=== PATIENT | male | born 1960 | race Caucasian/White ===

== ENCOUNTER 2023-06-05 16:29 | Emergency (ER) | payer BC, SELFPAY ==
[2023-06-05 16:41] VITALS: BP 176/80; PULSE 92; RESP 18; TEMP 36.8; O2SAT 99; BMI 24.4
--- NOTE | 2023-06-05 16:50 | ED_ITS ---
HPI - Abdominal Pain General Date Seen: 06/05/23 Chief Complaint: Abdominal Pain Stated Complaint: spasms, possible kidney stone Time Seen by Provider: 06/05/23 16:49 History of Present Illness HPI narrative: Pleasant 62-year-old gentleman with a history of hypertension, otherwise healthy presenting to the ER today with left flank and left lower quadrant abdominal pain. He notes that he had an episode of left flank pain the cap and a couple of days ago but got better with heat and hot shower and supportive care. He began to experience another episode of pain this morning around 7:00 a.m. located in his left flank and this time also radiating to his left lower quadrant. The pain since this morning has been much more persistent and much more severe. It is associated with nausea and vomiting. No fever chills. Bowel movements have been normal today. Urination has been normal. No dysuria, urgency, hematuria, frequency. No known injury. No rash. No swelling or pain in his groin. He took 1 of his 's pain killers which was partially and temporarily effective around noon today. Since then he has been experiencing severe pain again. Related Data Home Medications Medication Instructions Recorded Confirmed allopurinol 100 mg tablet 100 mg PO DAILY 06/05/23 06/05/23 Allergies Allergy/AdvReac Type Severity Reaction Status Date / Time No Known Drug Allergies Allergy Verified 06/05/23 16:40 [facility] Social History Smoking Status: Never smoker How often do you have a drink containing alcohol: never How often do you have six or more drinks on one occasion: Never AUDIT-C Alcohol total score: 0 Non-prescribed substance use: denies use Exam Narrative: Exam Narrative: Constitutional: Appears well-developed and well-nourished. Alert. Conversant. Non toxic. HENT: Head: Atraumatic. Nose: Nose normal. Mouth/Throat: Oral mucosa is clear and moist. no trismus. Pharynx normal. Tonsils symmetric. No tonsillar enlargement, erythema, or exudate. Eyes: Conjunctivae normal. EOM normal. Pupils equal, round, and reactive to light. No scleral icterus. Neck: Normal range of motion. Neck supple. No tracheal deviation present. Cardiovascular: Normal rate, regular rhythm. No gallop. No friction rub. No murmur heard. Symmetric radial artery pulses Pulmonary/Chest: Effort normal. No stridor. No respiratory distress. No wheezes. No rales. No rhonchi . No tenderness. Abdominal: Soft. Bowel sounds normal. No distension. No mass. Left CVA and left lower quadrant tenderness. No rebound. No guarding. : Normal circumcised penis. Normal testicles and scrotum. No inguinal masses or hernias. Musculoskeletal: RUE: Normal range of motion. No tenderness. No deformity LUE: Normal range of motion. No tenderness. No deformity RLE: Normal range of motion. No edema. No tenderness. No deformity LLE: Normal range of motion. No edema. No tenderness. No deformity Neurological: Alert and oriented to person, place, and time. Normal strength. CN II-VII intact. No sensory deficit. GCS eye subscore is 4. GCS verbal subscore is 5. GCS motor subscore is 6. Normal coordination Skin: Skin is warm and dry. No rash noted. No pallor. Normal capillary refill. Psychiatric: Normal mood. Normal affect. Const: Vital Signs, click to edit/add: Vital Signs - 24 hr 06/05/23 16:41 06/05/23 18:37 Temperature 98.3 F Pulse Rate [Pulse Oximeter] 92 97 Respiratory Rate 18 18 [facility] 176/80 H 172/94 H Pulse Oximetry 99 96 Oxygen Delivery Me thod Room Air Room Air Course Course ED Course: Recheck-pain improved after Toradol and Dilaudid. Resting more comfortably. Blood pressure still elevated 170/90. Cannot provide urinalysis yet. Reevaluation(s) Reevaluation #1: Recheck-creatinine abnormal at 2.1. Discussed with patient and his family. No old creatinine is available. Patient will try to log into his my chart from [facility] to find out recent lab values. Reevaluation #2: Recheck-patient unable to get into his my chart despite extensive efforts. went home to get their computer and still unable to log in. Still unable to provide UA. White count elevated 20 but not febrile. We were able to contact the [facility] transfer center. They confirmed that he had a normal creatinine of 1.06 in March. This would suggest an acute kidney injury today with creatinine up to 2.1. Vital Signs Vital signs: Initial Vital Signs Temperature 98.3 F 06/05/23 16:41 Temperature Source Temporal Artery Scan 06/05/23 16:41 Pulse Rate 92 06/05/23 16:41 Respiratory Rate 18 06/05/23 16:41 Blood Pressure 176/80 H 06/05/23 16:41 Blood Pressure Mean 112 H 06/05/23 16:41 Pulse Oximetry 99 06/05/23 16:41 Oxygen Delivery Method Room Air 06/05/23 16:41 Vital Signs Temperature 98.3 F 06/05/23 16:41 Pulse Rate 92 06/05/23 16:41 Respiratory Rate 18 06/05/23 16:41 Blood Pressure 176/80 H 06/05/23 16:41 Pulse Oximetry 99 06/05/23 16:41 Oxygen Delivery Method Room Air 06/05/23 16:41 Temperature 98.3 F 06/05/23 16:41 Pulse Rate 97 06/05/23 18:37 Respiratory Rate 18 06/05/23 18:37 Blood Pressure 172/94 H 06/05/23 18:37 Pulse Oximetry 96 06/05/23 18:37 Oxygen Delivery Method Room Air 06/05/23 18:37 Medications Administered Medications: Generic Name Dose Route Start Last Admin Trade Name Freq PRN Reason Stop Dose Admin Hydromorphone HCl 0.5 mg 06/05/23 19:30 06/05/23 19:34 Hydromorphone 0.5 Mg/0.5 Ml Inj IVP 0.5 mg Q1H PRN Administration Pain Discontinued Medications Generic Name Dose Route Start Last Admin Trade Name Freq PRN Reason Stop Dose Admin Hydromorphone HCl 0.5 mg 06/05/23 17:00 06/05/23 17:09 Hydromorphone 0.5 Mg/0.5 Ml Inj IVP 06/05/23 17:01 0.5 mg ONCE ONE Administration Sodium Chloride 1,000 mls @ 1,000 mls/hr 06/05/23 18:35 06/05/23 18:35 0.9 % Sodium Chloride 1000 Ml IV 06/05/23 19:34 1,000 mls/hr .Q1H KRISTEN Administration Ketorolac Tromethamine 15 mg 06/05/23 17:00 06/05/23 17:08 Ketorolac 15 Mg/Ml Inj IVP 06/05/23 17:01 15 mg ONCE ONE Administration Ondansetron HCl 4 mg 06/05/23 17:00 06/05/23 17:07 Ondansetron 2 Mg/Ml Inj IVP 06/05/23 17:01 4 mg ONCE ONE Administration MDM - Abdominal Pain MDM Narrative Medical decision making narrative: This patient presents with left lower quadrant and left flank pain. Differential Diagnosis considered includes: Ureterolithiasis, UTI, pyelonephritis, AAA, colitis, diverticulitis, volvulus, appendicitis, cholecystitis, among others. At this point, the evaluation indicates that ureterolithiasis is the cause of the patient's symptoms. Labs do show an acute kidney injury with a creatinine of 2.1, from baseline of 1.06. Also CT scan shows atrophic right kidney an obstructive stone obstructing his left kidney. This is potentially kidney stone obstructing his solitary good kidney. CT scan confirms a 5 mm distal left ureteral stone with associated marked hydronephrosis, left perinephric stranding, and signs of rupture of the proximal collecting system. He has an elevated white count of 20, but no fever. Urinalysis pending at the time of this dictation. Discussed with urology. They want us to hold off on antibiotics until they can obtain intraoperative urine samples for culture, since he is not showing hypotension or sepsis physiology. He will be transferred by EMS to the ED at [facility] in [place]. He is NPO. Pain controlled after Dilaudid. Lab Data Labs: Lab Results 06/05/23 06/05/23 Range/Units 16:50 19:30 WBC 20.19 H (4.50-11.00) K/uL RBC 4.95 (4.30-5.90) m/uL Hgb 13.8 (13.5-17.5) gm/dL Hct 41.8 (37.0-53.0) % MCV 84 (80-100) fL MCH 28 (26-34) pg MCHC 33 (32-36) gm/dL RDW Coeff of Selvin 12.8 (11.5-15.5) % Plt Count 331 (140-440) K/uL Neut % (Auto) 91.0 H (42.0-72.0) % Lymph % (Auto) 5.2 L (20-44) % Dodge % (Auto) 3.6 (0.0-11.0) % Eos % (Auto) 0.0 (0.0-7.0) % Baso % (Auto) 0.0 (0.0-3.0) % Neut # (Auto) 18.40 H (1.7-7.0) K/uL Lymph # (Auto) 1.00 (0.90-2.90) K/uL Dodge # (Auto) 0.70 (0.00-0.90) K/UL Eos # (Auto) 0.00 (0.00-0.50) K/uL Baso # (Auto) 0.00 (0.00-0.30) K/uL Abs Immat Gran (auto) 0.00 (0.00-0.30) K/uL Imm/Tot Granulo (auto) 0.2 % Sodium 140 (135-149) mmol/L Potassium 4.4 (3.6-5.1) mmol/L Chloride 107 (96-114) mmol/L Carbon Dioxide 21 (20-32) mmol/L Anion Gap 12 (7-15) mEq/L BUN 20 (7-30) mg/dL Creatinine 2.1 H (0.5-1.5) mg/dL Estimated Creat Clear 39.52 Estimated GFR 35 ml/min Glucose 150 H (60-115) mg/dL Calcium 9.7 (8.4-10.6) mg/dL Urine Color Yellow (Yellow) Urine Appearance Clear (Clear) Urine pH 7.0 (5.0-8.5) Ur Specific [place] 1.020 (1.000-1.030) Urine Protein Negative (Negative) Urine Glucose (UA) Trace A (Negative) Urine Ketones Negative (Negative) Urine Blood 1+ A (Negative) Urine Nitrite Negative (Negative) Urine Bilirubin Negative (Negative) Urine Urobilinogen 0.2 (0.2-1.0) Ur Leukocyte Esterase Negative (Negative) Imaging Data CT scan - abdomen: Attestation: I have reviewed the pertinent imaging results. Radiologist's impression: IMPRESSION: 1. Moderate left hydronephrosis and hydroureter with 5 millimeter stone just distal to the UVJ. Additional nonobstructing left renal calculi. There is a large amount of perinephric stranding and fluid on the left with fluid tracking along the left pericolic gutter into the pelvis. This probably is related to forniceal rupture. Discharge Plan Discharge Clinical Impression: Acute kidney injury, Kidney stone Patient Disposition: [facility] Prescriptions: No Action allopurinol 100 mg tablet 100 mg PO DAILY Stand Alone Forms: [id number] Instructions
--- NOTE | 2023-06-05 16:51 | CT_ITS ---
Patient: PILO LOPEZ Facility:?[facility] Patient ID:?[id number] Site Patient ID:?[id number]. Site :?[id number] Study:?CT-Abdomen/Pelvis STONE STUDY-06/05/2023 5:22:35 PM Ordering Physician:MAGNOLIA Final Report: INDICATION: Flank pain vomiting TECHNIQUE: CT abdomen and pelvis without contrast. COMPARISON: None. FINDINGS: Lower chest: Large hiatal hernia. Liver: Normal in size and attenuation. No suspicious masses. Gallbladder and bile ducts: No stones or inflammation. No biliary dilatation. Pancreas: Unremarkable. No mass or inflammation. Spleen: Normal in size. No masses. Adrenal glands: Normal in size. No nodules. Kidneys: Atrophic right kidney. Small nonobstructing right renal calculus. 5 millimeters stone in the left distal ureter just proximal to the UVJ. The left kidney is enlarged there is multiple small nonobstructing left renal calculi. There is moderate left hydronephrosis hydroureter or significant amount of perinephric stranding and fluid could be related to forniceal rupture. [id number] amount of left Nathalia nephric fluid tracking along the pericolic gutter. GI tract: Diverticulosis Vasculature: Abdominal aorta is normal in caliber. Lymph nodes: No lymphadenopathy. Peritoneum/Abdominal Wall: Small amount of fluid in the pelvis. Pelvis: Mildly enlarged prostate gland Bones: Unremarkable for age. IMPRESSION: 1. Moderate left hydronephrosis and hydroureter with 5 millimeter stone just distal to the UVJ. Additional nonobstructing left renal calculi. There is a large amount of perinephric stranding and fluid on the left with fluid tracking along the left pericolic gutter into the pelvis. This probably is related to forniceal rupture. Please note that all CT scans at this facility use dose modulation, iterative reconstruction, and/or weight-based dosing when appropriate to reduce radiation dose to as low as reasonably achievable. Dictated by Shannon Lagos MD @ 06/05/2023 5:57:34 PM Signed by:?Shannon Lagos MD @06/05/2023 5:57:34 PM (Electronic Signature)
[2023-06-05 17:05] LABS: Hematocrit 41.8 % (37.0-53.0); Hemoglobin* 13.8 gm/dL (13.5-17.5); Immature Granulocytes Pct Auto 0.2 %; Lymphocytes Percent Auto 5.2 % (20-44); Mean Corpuscular HGB Conc 33 gm/dL (32-36); Mean Corpuscular Hemoglobin 28 pg (26-34); Mean Corpuscular Volume 84 fL (80-100); Monocytes Percent Auto 3.6 % (0.0-11.0); Platelet Count* 331 K/uL (140-440); RDW Coefficient of Variation % 12.8 % (11.5-15.5); Red Blood Count 4.95 m/uL (4.30-5.90); White Blood Count* 20.19 K/uL (4.50-11.00)
[2023-06-05] MEDS: ONDANSETRON 2 MG/ML inj 4 MG IVP (17:07)
[2023-06-05 17:08] LABS: Slide Review Reflex No
[2023-06-05] MEDS: KETOROLAC 15 MG/ML inj IVP (17:08)
[2023-06-05] MEDS: HYDROmorphone 0.5 mg/0.5 ml inj IVP ×2 (17:09→19:34)
[2023-06-05 17:17] LABS: Chloride* 107 mmol/L (96-114); Sodium* 140 mmol/L (135-149)
[2023-06-05 17:18] LABS: Potassium* 4.4 mmol/L (3.6-5.1)
[2023-06-05 17:20] LABS: Creatinine* 2.1 mg/dL (0.5-1.5); Est. Creatinine Clearance* 39.52; Estimated Glomerular Filt Rate 35 ml/min
[2023-06-05 17:21] LABS: Anion Gap 12 mEq/L (7-15); Blood Urea Nitrogen* 20 mg/dL (7-30); Calcium* 9.7 mg/dL (8.4-10.6); Carbon Dioxide* 21 mmol/L (20-32); Glucose* 150 mg/dL (60-115)
[2023-06-05] MEDS: 0.9 % SODIUM CHLORIDE 1000 ml 1,000 ML IV (18:35)
[2023-06-05 18:37] VITALS: BP 172/94; PULSE 97; RESP 18; O2SAT 96
[2023-06-05 19:44] LABS: Appearance Urine Clear (Clear); Bilirubin Urine Negative (Negative); Blood Urine 1+ (Negative); Color Urine Yellow (Yellow); Glucose Urine Trace (Negative); Ketones Urine Negative (Negative); Leukocyte Esterase Urine Negative (Negative); Nitrite Urine Negative (Negative); Protein Urine Negative (Negative); Urobilinogen Urine 0.2 (0.2-1.0)
[2023-06-05 19:56] VITALS: BP 166/99; PULSE 93; RESP 20; O2SAT 97
[2023-06-05 20:00] VITALS: TEMP 37.9
[2023-06-05] MEDS: ACETAMINOPHEN 500 MG TABLET 1000 MG PO (20:00)
[2023-06-05 20:03] LABS: WBC Urine 0-2 (0-5)
--- NOTE | 2023-06-05 20:17 | ED.NURSE ---
Pt report given to EMS, pt en route to [facility].
== END 2023-06-05 20:19 | disposition short-term general hospital (02) ==
PROVIDERS: Emergency Provider Emergency Medicine
DX: N17.9 Acute kidney failure, unspecified (principal); N20.0 Calculus of kidney
CPT/HCPCS: 36415; 74176; 80048; 81001; 85025; 96361; 96374; 96375; 96376; 99285; A9270; J1170; J1885; J2405; J7030

== ENCOUNTER 2023-06-05 20:15 | Outpatient (CLI) | payer BC, SELFPAY | END 2023-06-05 20:16 | disposition home or self-care (01) | LOC: AMB 06-06 14:47 | PROVIDERS: Visit Provider Family Medicine | DX: N20.0 Calculus of kidney (principal) | CPT/HCPCS: A0425; A0429 ==